=== PATIENT | male | born 1965 ===

== ENCOUNTER 2017-11-13 00:57 | Emergency (ER) | payer OTHER ==
[2017-11-13 00:57] VITALS: BMI 26.4
[2017-11-13 01:15] VITALS: RESP 20
--- NOTE | 2017-11-13 03:01 | C.PDOC ---
History Of Present Illness 52 year old male is brought to the ED by EMS after being found intoxicated in the street. Patient admits to drinking alcohol today. Patient denies SI/HI, hallucinations, fever, chills, CP, SOB. Time Seen by Provider: 11/13/17 01:32 Chief Complaint (Nursing): Substance Abuse History Per: Patient, EMS History/Exam Limitations: intoxication Onset/Duration Of Symptoms: Days Current Symptoms Are (Timing): Still Present Suicide/Self Injury Attempted (Context): None Modifying Factor(s): None Associated Symptoms: denies: Depression, Suicidal Thoughts, Suicidal Plan Involuntary Hold By: None Recent travel outside of the [place]: No Additional History Per: Patient Past Medical History Reviewed: Historical Data, Nursing Documentation, Vital Signs Vital Signs: Last Vital Signs Temp 98.0 F 11/13/17 04:10 Pulse 74 11/13/17 04:10 Resp 20 11/13/17 04:10 BP 110/71 11/13/17 04:10 Pulse Ox 97 11/13/17 04:10 - Medical History PMH: Anxiety Denies: Diabetes, Hepatitis, HIV, HTN, Seizures, Sexually Transmitted Disease Surgical History: No Surg Hx Family History: States: Unknown Family Hx - Social History Hx Alcohol Use: Yes Hx Substance Use: Yes - Immunization History Hx Tetanus Toxoid Vaccination: No Hx Influenza Vaccination: No Hx Pneumococcal Vaccination: No Review Of Systems Constitutional: Negative for: Fever, Chills Cardiovascular: Negative for: Chest Pain Respiratory: Negative for: Shortness of Breath Gastrointestinal: Negative for: Nausea, Vomiting, Abdominal Pain Skin: Negative for: Rash Psych: Negative for: Depression, Suicidal ideation Physical Exam - Physical Exam Appears: Non-toxic, No Acute Distress, Other (AOB) Skin: Normal Color, Warm, Dry Head: Atraumatic, Normacephalic Eye(s): bilateral: Normal Inspection, PERRL Nose: No Discharge Oral Mucosa: Moist Neck: Normal ROM, Supple Chest: Symmetrical Cardiovascular: Rhythm Regular, No Murmur Respiratory: Normal Breath Sounds, No Rales, No Rhonchi, No Wheezing Gastrointestinal/Abdominal: Soft, No Tenderness, No Guarding, No Rebound Extremity: Normal ROM, No Tenderness, No Swelling, Other (dirt at b/l soles) Extremity: Bilateral: Atraumatic Neurological/Psych: Other (arousable to verbal and tactile stimuli) Gait: Unable To Assess ED Course And Treatment O2 Sat by Pulse Oximetry: 95 (On RA) Pulse Ox Interpretation: Normal Progress Note: Patient is easily aroused and alert, oriented to person, place and time. He has stable vital signs. At this time the patient is ambulatory with steady gait, and is clinically sober. Disposition Counseled Patient/Family Regarding: Diagnosis, Need For Followup - Disposition Disposition: HOME/ ROUTINE Disposition Time: 05:39 Condition: STABLE Additional Instructions: Please follow up in clinic Recommend Detox Return to ER if wose Forms: [employer] (Cuban) - Clinical Impression Clinical Impression: Alcohol abuse - PA / RADIOLOGY TECHNOLOGIST / Resident Statement MD/DO has reviewed & agrees with the documentation as recorded. - Scribe Statement The provider has reviewed the documentation as recorded by the Scribe Brandyn Menon All medical record entries made by the Scribe were at my direction and personally dictated by me. I have reviewed the chart and agree that the record accurately reflects my personal performance of the history, physical exam, medical decision making, and the department course for this patient. I have also personally directed, reviewed, and agree with the discharge instructions and disposition.
[2017-11-13 04:11] VITALS: PULSE 74; TEMP 98
[2017-11-13 05:52] VITALS: BP 120/70; O2SAT 97
== END 2017-11-13 05:51 | disposition home or self-care (01) ==
LOC: C.ER 00:57
DX: F10.129 Alcohol abuse with intoxication, unspecified (principal); Y90.9 Presence of alcohol in blood, level not specified

== ENCOUNTER 2018-02-01 12:10 | Emergency (ER) | payer OTHER ==
[2018-02-01 12:10] VITALS: BMI 26.4
[2018-02-01 14:13] VITALS: TEMP 97.6
--- NOTE | 2018-02-01 14:37 | C.PDOC ---
History Of Present Illness 52 y/o male brought in by EMS from home for evaluation of ETOH intoxication after his family called 911.Patient admits to drinking ETOH. Patient denies having suicidal ideation,homicidal ideation, and active physical complaints at this time. Time Seen by Provider: 02/01/18 12:20 Chief Complaint (Nursing): Substance Abuse History Per: Patient History/Exam Limitations: no limitations Past Medical History Reviewed: Historical Data, Nursing Documentation, Vital Signs Vital Signs: Last Vital Signs Temp 97.6 F 02/01/18 14:00 Pulse 76 02/01/18 14:00 Resp 19 02/01/18 14:00 BP 116/73 02/01/18 14:00 Pulse Ox 97 02/01/18 14:39 - Medical History PMH: Anxiety Denies: Diabetes, Hepatitis, HIV, HTN, Chronic Kidney Disease, Seizures, Sexually Transmitted Disease Other Surgeries: Hx of surgeries Family History: States: Diabetes - Social History Hx Alcohol Use: Yes Hx Substance Use: No - Immunization History Hx Tetanus Toxoid Vaccination: No Hx Influenza Vaccination: No Hx Pneumococcal Vaccination: No Review Of Systems Except As Marked, All Systems Reviewed And Found Negative. Physical Exam - Physical Exam Appears: No Acute Distress Skin: Normal Color, Warm, Dry Head: Atraumatic, Normacephalic Eye(s): bilateral: Normal Inspection Nose: Normal Oral Mucosa: Moist, Other (ETOH on breath) Neck: Supple Chest: Symmetrical Cardiovascular: Rhythm Regular Respiratory: Normal Breath Sounds, No Rales, No Rhonchi, No Wheezing Gastrointestinal/Abdominal: Normal Exam, Soft, No Tenderness, No Guarding, No Rebound Neurological/Psych: Oriented x3, Normal Speech ED Course And Treatment O2 Sat by Pulse Oximetry: 97 (RA) Pulse Ox Interpretation: Normal Medical Decision Making Medical Decision Making: Assessment: ETOH Intoxication Plan: --Glucose, POC 1503 - patient ambulatory with steady gait patient consumed food and juice will discharge home to follow up with pmd in 2 days Disposition Counseled Patient/Family Regarding: Studies Performed, Diagnosis, Need For Followup - Disposition Referrals: [facility] [Outside] Disposition: HOME/ ROUTINE Disposition Time: 15:04 Condition: IMPROVED Additional Instructions: follow up with medical clinic within 2 days decrease your alcohol consumption call to make an appointment take medications as prescribed return to ER if symptoms worsens or progress Instructions: Alcohol Abuse and Alcoholism (DC) Forms: [employer] (Moroccan), General Discharge Instructions - Clinical Impression Clinical Impression: Alcohol intoxication - Scribe Statement The provider has reviewed the documentation as recorded by the Madhaviibcarmen Iglesias Provider Attestation: All medical record entries made by the Madhaviibe were at my direction and personally dictated by me. I have reviewed the chart and agree that the record accurately reflects my personal performance of the history, physical exam, medical decision making, and the department course for this patient. I have also personally directed, reviewed, and agree with the discharge instructions and disposition.
[2018-02-01 16:10] VITALS: BP 124/73; PULSE 67; RESP 18; O2SAT 96
== END 2018-02-01 15:36 | disposition home or self-care (01) ==
LOC: C.ER 12:10
DX: F10.129 Alcohol abuse with intoxication, unspecified (principal)

== ENCOUNTER 2018-07-20 16:27 | Emergency (ER) | payer OTHER ==
[2018-07-20 16:57] VITALS: BMI 27.9
[2018-07-20 17:01] VITALS: BP 134/84; PULSE 74; TEMP 98.2; O2SAT 97
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
[2018-07-20 18:09] VITALS: RESP 16
== END 2018-07-20 18:08 | disposition home or self-care (01) ==
LOC: C.ER 16:27
DX: F10.129 Alcohol abuse with intoxication, unspecified (principal)